=== PATIENT | male | born 1970 | race Caucasian/White ===

== ENCOUNTER 2020-10-01 20:54 | Emergency (ER) | payer OTHER, SELFPAY ==
[2020-10-01 21:15] VITALS: BP 133/85; PULSE 91; RESP 20; TEMP 36.6; O2SAT 97
--- NOTE | 2020-10-01 21:24 | ED.HEATRA ---
HPI - Head Injury General Chief complaint: Dental/Oral Stated complaint: swollen lip, tongue Source: patient Mode of arrival: ambulatory Limitations: no limitations History of Present Illness HPI Narrative: patient was hit by a hose at work that snapped back and hit him in the face 3 days ago. He has been having some increased swelling in his tongue so he came in for further evaluation. He denies any fever chills nausea vomiting. MD Complaint: other ( facial injury) Onset (ago): day(s) (3) Mechanism of Injury: other ( direct blow) Place: work Loss of Consciousness: no Location of injury: face Severity: moderate Quality: dull Radiation: none Other Injuries: laceration and tongue Associated symptoms: denies other symptoms PMFSH Past Medical History Medical History (Updated 10/01/20 @ 21:40 by Larry Dillard MD) No active medical problems Surgical History Surgical History (Updated 10/01/20 @ 21:32 by Larry Dillard MD) History of mandibular surgery Social History Social History (Updated 10/01/20 @ 21:32 by Larry Dillard MD) Smoking packs per day: 1 Smoking cigarettes per day: 20.0 Smoking status: Current every day smoker Tobacco type: cigarettes Alcohol intake: never Substance use: never Exam Const: General: healthy appearing and no acute distress Nutritional Appearance: well nourished Orientation/consciousness: patient oriented x3 Eyes: Conjunctivae: conjunctivae normal Pupils: Equal, round and reactive pupils present EOM: EOMs intact bilaterally Neck: Neck: normal visual inspection Resp: Effort & Inspection: normal respiratory effort Auscultation: clear to auscultation bilaterally Cardio: Rate: regular rate Rhythm: regular rhythm GI: GI Palp: Yes Soft to palpation and No Tenderness to palpation present (GI) Auscultation: normal bowel sounds Skin: General skin exam: normal color Trauma: laceration (tongue) lateral other linear ( healing but some swelling of the lateral tongue), lower lip stellate ( healing well) Neuro: General: patient oriented x3, moves all extremities, no meningeal signs and no focal motor deficits Speech: normal speech Gait exam (Neuro): Normal gait present Extrem: General: normal to inspection and no clubbing, cyanosis or edema Psych: Appearance: grossly normal and well kempt Mental Status: mental status grossly normal Affect: normal affect Attitude: cooperative Thought content: Yes Normal thought content present Course Vital Signs Vital signs: Vital Signs Temperature 36.6 C 10/01/20 21:15 Pulse Rate 91 10/01/20 21:15 Respiratory Rate 20 10/01/20 21:15 Blood Pressure 133/85 10/01/20 21:15 Pulse Oximetry 97 10/01/20 21:15 Temperature 36.6 C 10/01/20 21:15 Pulse Rate 91 10/01/20 21:15 Respiratory Rate 20 10/01/20 21:15 Blood Pressure 133/85 10/01/20 21:15 Pulse Oximetry 97 10/01/20 21:15 Discharge Plan Discharge Clinical Impression: Laceration of tongue with complication Qualifiers: Encounter type: initial encounter Qualified Code(s): S01.512A - Laceration without foreign body of oral cavity, initial encounter Laceration of lip Qualifiers: Encounter type: initial encounter Qualified Code(s): S01.511A - Laceration without foreign body of lip, initial encounter Patient Disposition: Home, Self-Care Condition: Stable Instructions: Antibiotic Form, Laceration (ED) Prescriptions: New clindamycin HCl 300 mg capsule 300 mg PO Q8H 10 Days Qty: 30 RF: 0 Follow-up/Referrals: UNKNOWN,DOCTOR [Primary Care Provider] - Stand Alone Forms: Work/School Release IP Time of Disposition: 21:41
[2020-10-01] MEDS: TETANUS,DIPHTHERIA,AC PERTUSSIS ADULT 0.5 ML (ADACEL) IM (21:49)
[2020-10-01] MEDS: CLINDAMYCIN HCL 150 MG CAP 300 MG PO (21:49)
== END 2020-10-01 21:58 | disposition home or self-care (01) ==
PROVIDERS: Emergency Provider Emergency Medicine
DX: S01.512A Laceration without foreign body of oral cavity, initial encounter (principal); S01.511A Laceration without foreign body of lip, initial encounter; W22.8XXA Striking against or struck by other objects, initial encounter
CPT/HCPCS: 90471; 90715; 99283; A9270

== ENCOUNTER 2023-07-22 13:11 | Emergency (ER) | payer SELFPAY ==
[2023-07-22 13:18] VITALS: BP 137/73; PULSE 97; RESP 20; TEMP 36.6; O2SAT 96
--- NOTE | 2023-07-22 13:55 | ED.URI ---
HPI - URI/Sore Throat General Chief Complaint: Upper Respiratory Infection Stated Complaint: achey joints Time Seen by Provider: 07/22/23 13:30 Source: patient, RN notes reviewed and old records reviewed Mode of arrival: ambulatory Limitations: no limitations History of Present Illness HPI Narrative: 52-year-old male presents to [facility] with complaints cough body aches some shortness of breath which started last week on the 1st of month. Patient reports that cough and shortness of breath has improved but continues to have generalized body aches and joint pains. Patient reports that he has taken Mucinex and NyQuil for his symptoms. Patient reports that he needs a note to return to work. MD elicited complaint: cough and other (body aches and dyspnea) Pertinent past history: other (tobacco abuse) Onset (ago): day(s) (6 days) Pain scale (0-10): 7 Able to tolerate fluids by mouth: Yes Treatments prior to arrival: other (NyQuil and Mucinex) Related Data Allergies Allergy/AdvReac Type Severity Reaction Status Date / Time No Known Allergies Allergy Verified 07/22/23 13:45 Review of Systems Review of Systems: CONSTITUTIONAL: Denies malaise, chills, sweats, or fever. EYES: Denies visual changes, redness, or discharge. ENT: Reports rhinorrhea, congestion,no sinus pain, no otalgia and no sore throat. CARDIOVASCULAR: Denies chest pain, palpitations, or edema. RESPIRATORY: Reports cough.? Denies dyspnea. GASTROINTESTINAL: Denies abdominal pain, nausea, vomiting, diarrhea, reports decreased appetitie SKIN: Denies rash or itching. MUSCULOSKELETAL: Reports myalgia. and joint pain NEUROLOGIC: Denies headache. All systems reviewed & are unremarkable except as noted in HPI and below PMFSH Past Medical History Medical History No active medical problems Surgical History Surgical History History of mandibular surgery History of mandibular surgery Family History Family History Father Malignant neoplasm of prostate Social History Social History Smoking packs per day: 1 Smoking cigarettes per day: 20.0 Smoking status: Current every day smoker Tobacco type: cigarettes Alcohol intake: never Substance use: never Living arrangements: with family Occupation/Education: occupation Gender identity (if verbalized by the patient): Male Comments At time of signature, agree with nursing past medical, surgical, social and family history. There is no relevant family history pertinent to the presenting complaint Exam Narrative: GENERAL: Well-appearing, well-nourished, and in no acute distress. HEAD: Normocephalic EYES: PERRLA, conjunctivae clear ENT: Nares clear, turbinates edematous and erythematous, clear discharge. Mucous membranes moist. TM pearly jerome with dull light reflex bilaterally; no tragal tenderness. Oropharynx erythematous without lesions. Tonsils not enlarged and without exudate, no drooling, no hoarseness, no trismus, uvula midline.post nasal drainage NECK: Supple. No lymphadenopathy CHEST: Clear to auscultation, breath sounds equal. No wheezing, rhonchi, rales, or stridor. No respiratory distress, speaks in full sentences.cough SAO2 96% on room air HEART: Regular rate and rhythm. No murmur heard. SKIN: Warm, dry, no rash. NEURO: Alert and oriented x3. PSYCH: Normal mood and affect Course Course Emergency Course: Patient is aware of diagnosis, understands and agrees to treatment plan.? Anticipatory guidance given.? Patient agrees to follow-up as directed and is aware of reasons to seek care at the emergency department. Portions of this record may have been created with voice recognition software Level of Care: [facility] Care Visit Vital Si
== END 2023-07-22 14:15 | disposition home or self-care (01) ==
PROVIDERS: Emergency Provider Registered Nurse; PCP Internal Medicine
DX: R52 Pain, unspecified (principal); J06.9 Acute upper respiratory infection, unspecified; Z20.822 Contact with and (suspected) exposure to COVID-19; F17.210 Nicotine dependence, cigarettes, uncomplicated
CPT/HCPCS: 87426; 87804; 99213; G0463